=== PATIENT | female | born 1970 | race Caucasian/White ===

== ENCOUNTER 2017-07-13 15:11 | Emergency (ER) | payer OTHER, MEDICAID ==
[~2017-07-13] VITALS: Ht 154.9 cm; Wt 142.4 kg
[~2017-07-13 15:11] MED LIST: ALAVERT10 MG PO; ALBUTEROL INH; ALPRAZOLAM; AMOXICILLIN875 MG PO; AZITHROMYCIN 2250 MG PO; DOXYCYCLINE 10100 MG PO; FLONASE; GLUCOPHAGE XR500 MG; IBUPROFEN 800800 M1 PO; LISINOPRIL10 MG PO; MEDROLDOSEPACK PO; METFORMIN HCL500 MG PO; NORCO 5-325 TA1 EACH PO; PHENERGAN 25 MG25 MG PO; PREDNISONE 20 M20 M1 PO; PROMETHAZINE-D120 ML PO; PROVENTIL HFA6.7 G1 INH; TESSALON PERLE100 MG PO; TRAMADOL 50 MG50 MG PO; ZANTAC150 M2 PO; ZPAK PO
[2017-07-13 16:11] LABS: ABSOLUTE BASOPHILS 0.1 thou/uL (0.0-0.2); ABSOLUTE EOSINOPHILS 0.2 thou/uL (0.0-0.7); ABSOLUTE LYMPHOCYTES 2.5 thou/uL (0.8-5.3); ABSOLUTE MONOCYTES 0.7 thou/uL (0.0-1.2); ABSOLUTE NEUTROPHILS 4.9 thou/uL (1.6-8.1); BASOPHILS 1.4 %; EOSINOPHILS 2.6 %; HEMATOCRIT 41.5 % (37.0-47.0); HEMOGLOBIN 13.4 gm/dL (12.0-15.0); LYMPHOCYTES 29.6 %; MCH 27.6 pg (26.0-34.0); MCHC 32.2 g/dL (28.0-37.0); MCV 85.6 fL (80.0-100.0); MONOCYTES 8.1 %; MPV 9.1 fl. (7.2-11.1); NUCLEATED RBCS 0 /100WBC; PLATELET COUNT* 315 thou/uL (150-400); POLYS 58.3 %; RBC 4.85 mil/uL (4.20-5.00); RDW-CV 15.8 % (10.5-14.5); WBC 8.3 thou/uL (4.0-11.0)
[2017-07-13 16:15] LABS: INR 1.1; PROTIME 10.5 Seconds (9.20-11.50)
[2017-07-13 16:16] LABS: ANION GAP 9 mmol/L (7-16); BUN 13 mg/dL (7-18); CALCIUM 9.3 mg/dL (8.5-10.1); CHLORIDE 101 mmol/L (98-107); CO2 29 mmol/L (21-32); CREATININE 0.9 mg/dL (0.6-1.3); GLUCOSE 152 mg/dL (70-99); SODIUM 139 mmol/L (136-145)
[2017-07-13 16:32] LABS: ALBUMIN 3.5 g/dL (3.4-5.0); ALKALINE PHOSPHATASE 89 U/L (46-116); LIPASE 169 U/L (73-393); NT-PRO BRAIN NAT PEPTIDE 6 pg/mL (<300); SGOT 34 U/L (15-37); SGPT 33 U/L (30-65); TOTAL BILIRUBIN 0.2 mg/dL (<0.1-1.0); TOTAL PROTEIN 7.9 g/dL (6.4-8.2); TROPONIN-I LEVEL <0.06 ng/mL (<0.06)
[2017-07-13] MEDS ORDERED: HYDROCODON-ACE1 EAC7 PO (18:20)
[2017-07-13] MEDS ORDERED: ZOFRAN4 MG PO (18:20)
[2017-07-13 18:39] VITALS: BP 131/73
--- NOTE | 2017-07-14 12:26 | EKG ---
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 : 1970 Requested By: Willis Cotter Order Number: [id number] MD: Dirk Alatorre Measurements Intervals [place] Rate: 93 P: 13 NH: 148 QRS: -8 QRSD: 101 T: 34 QT: 358 QTc: 446 Interpretive Statements Sinus rhythm Consider anterior infarct Compared to ECG 09/18/2011 22:57:40 no change Electronically Signed On 07-14-2017 12:26:13 PHLEBOT[employer]IST MEDICAL [employer] ASSISTANT by Dirk Alatorre [email or web address] <ELECTRONICALLY SIGNED> By: Dirk Alatorre MD, [facility] 07/14/17 1226 1530 1530 Dirk Alatorre MD, FACC /EPI
== END 2017-07-13 18:40 | disposition home or self-care (01) ==
LOC: M.ERS 15:11
PROVIDERS: Emergency Medicine
DX: K80.80 Other cholelithiasis without obstruction (principal); E11.9 Type 2 diabetes mellitus without complications; F41.9 Anxiety disorder, unspecified; Z87.01 Personal history of pneumonia (recurrent); Z88.0 Allergy status to penicillin; Z88.5 Allergy status to narcotic agent

== ENCOUNTER 2018-02-11 16:14 | Emergency (ER) | payer OTHER, MEDICAID ==
[~2018-02-11] VITALS: Ht 152.4 cm; Wt 142.9 kg
[~2018-02-11 16:14] MED LIST changes: +HYDROCODON-ACE1 EAC7 PO; +ZOFRAN4 MG PO
[2018-02-11] MEDS ORDERED: BACTRIM DS TAB1 EACH PO (17:02)
[2018-02-11 17:10] VITALS: BP 133/96
== END 2018-02-11 17:11 | disposition home or self-care (01) ==
LOC: M.ERS 16:14
DX: S90.852A Superficial foreign body, left foot, initial encounter (principal); F41.9 Anxiety disorder, unspecified; E11.9 Type 2 diabetes mellitus without complications; Z88.5 Allergy status to narcotic agent; Z88.0 Allergy status to penicillin; Z87.01 Personal history of pneumonia (recurrent); W45.8XXA Other foreign body or object entering through skin, initial encounter; Y93.89 Activity, other specified; Y92.89 Other specified places as the place of occurrence of the external cause; Y99.8 Other external cause status

== ENCOUNTER 2021-02-09 10:16 | Emergency (ER) | payer OTHER, MEDICAID ==
[~2021-02-09] VITALS: Ht 157.5 cm; Wt 142.9 kg
[~2021-02-09 10:16] MED LIST changes: +BACTRIM DS TAB1 EACH PO
--- NOTE | 2021-02-09 14:47 | EKG ---
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: : 1970 Requested By: Allen Granados Order Number: [id number] MD: Dirk Alatorre Measurements Intervals [place] Rate: 94 P: 0 MN: 149 QRS: -31 QRSD: 97 T: 33 QT: 359 QTc: 449 Interpretive Statements Sinus rhythm Left axis deviation Consider anterior infarct Compared to ECG 07/13/2017 15:30:05 Left-axis deviation now present Myocardial infarct finding still present Electronically Signed On 02-09-2021 14:47:03 CDT by Dirk Alatorre [email or web address] <ELECTRONICALLY SIGNED> By: Dirk Alatorre MD, FAC 02/09/21 1447 1035 1035 Dirk Alatorre MD, [facility] /EPI
[2021-02-09 15:01] LABS: ABSOLUTE BASOPHILS 0.1 thou/uL (0.0-0.2); ABSOLUTE EOSINOPHILS 0.2 thou/uL (0.0-0.7); ABSOLUTE LYMPHOCYTES 2.9 thou/uL (0.8-5.3); ABSOLUTE MONOCYTES 0.5 thou/uL (0.0-1.2); ABSOLUTE NEUTROPHILS 4.8 thou/uL (1.6-8.1); BASOPHILS 1.1 %; EOSINOPHILS 1.9 %; HEMATOCRIT 44.6 % (37.0-47.0); HEMOGLOBIN 14.5 gm/dL (12.0-15.0); LYMPHOCYTES 34.3 %; MCHC 32.5 g/dL (28.0-37.0); MONOCYTES 5.7 %; MPV 8.8 fl. (7.2-11.1); NUCLEATED RBCS 0 /100WBC; PLATELET COUNT* 321 thou/uL (150-400); RBC 5.37 mil/uL (4.20-5.00); RDW-CV 14.8 % (10.5-14.5); WBC 8.4 thou/uL (4.0-11.0)
[2021-02-09 15:18] LABS: CALCIUM 9.1 mg/dL (8.5-10.1); CREATININE 0.8 mg/dL (0.6-1.3); POTASSIUM 4.3 mmol/L (3.5-5.1)
[2021-02-09 15:23] LABS: ALBUMIN 3.6 g/dL (3.4-5.0); TOTAL BILIRUBIN 0.4 mg/dL (<0.1-1.0); TOTAL PROTEIN 7.9 g/dL (6.4-8.2)
[2021-02-09 16:40] LABS: URINE BILIRUBIN NEGATIVE (Negative); URINE BLOOD TRACE (Negative); URINE CLARITY CLEAR; URINE COLOR YELLOW; URINE GLUCOSE-RANDOM 1+ (Negative); URINE KETONES NEGATIVE (Negative); URINE LEUKOCYTES-REFLEX NEGATIVE (Negative); URINE NITRITE-REFLEX NEGATIVE (Negative); URINE PROTEIN NEGATIVE (Negative); URINE SPECIFIC GRAVITY 1.025 (1.005-1.030); URINE UROBILINOGEN 0.2 E.U./dl (0.2-1.0)
[2021-02-09 17:44] VITALS: BP 143/87
== END 2021-02-09 17:44 | disposition home or self-care (01) ==
LOC: M.ERS 10:16
PROVIDERS: Nurse Practitioner Family; Nurse Practitioner Psychiatric/Mental Health
DX: B34.9 Viral infection, unspecified (principal); Z20.822 Contact with and (suspected) exposure to COVID-19; E11.65 Type 2 diabetes mellitus with hyperglycemia; I10 Essential (primary) hypertension; Z98.51 Tubal ligation status; Z87.01 Personal history of pneumonia (recurrent); Z88.5 Allergy status to narcotic agent; Z88.0 Allergy status to penicillin